=== PATIENT | male | born 1945 | race Native Hawaiian/Other Pacific Islander ===

== ENCOUNTER 2016-08-09 14:22 | Outpatient (CLI) | payer OTHER ==
[2016-08-09 14:42] LABS: PLATELET COUNT 177 K/uL (142-355)
[2016-08-09 15:03] LABS: POTASSIUM 4.4 mmol/L (3.6-5.2); SODIUM 139 mmol/L (136-145)
== END 2016-08-09 23:48 | disposition home or self-care (01) ==
LOC: LABW 14:22
PROVIDERS: Internal Medicine Cardiovascular Disease
DX: E78.4 Other hyperlipidemia (principal); Z79.899 Other long term (current) drug therapy; Z51.81 Encounter for therapeutic drug level monitoring
CPT/HCPCS: 36415; 80048; 80061; 80076; 85027

== ENCOUNTER 2018-09-05 06:05 | Outpatient (CLI) | payer OTHER ==
[2018-09-05 06:34] LABS: PLATELET COUNT 192 K/uL (142-355)
[2018-09-05 06:40] LABS: POTASSIUM 4.3 mmol/L (3.6-5.2)
== END 2018-09-05 20:18 | disposition home or self-care (01) ==
LOC: LABW 06:05
PROVIDERS: Internal Medicine Cardiovascular Disease
DX: Z79.899 Other long term (current) drug therapy (principal); E78.5 Hyperlipidemia, unspecified
CPT/HCPCS: 36415; 80053; 80061; 85027

== ENCOUNTER 2021-04-05 08:09 | Outpatient (CLI) | payer OTHER | END 2021-04-05 20:06 | disposition home or self-care (01) | LOC: CT 08:09 | PROVIDERS: ATTEND Internal Medicine Cardiovascular Disease | DX: R93.89 Abnormal findings on diagnostic imaging of other specified body structures (principal) | CPT/HCPCS: 36415; 82565; 84520; Q9963 ==

== ENCOUNTER 2023-03-08 07:28 | Outpatient (CLI) | payer OTHER ==
[2023-03-08 07:55] LABS: PLATELET COUNT 136 K/uL (142-355)
[2023-03-08 08:15] LABS: POTASSIUM 3.9 mmol/L (3.6-5.2)
== END 2023-03-08 19:53 | disposition home or self-care (01) ==
LOC: LABW 07:28
PROVIDERS: ATTEND Internal Medicine Cardiovascular Disease
DX: Z79.899 Other long term (current) drug therapy (principal); N39.0 Urinary tract infection, site not specified; N40.0 Benign prostatic hyperplasia without lower urinary tract symptoms
CPT/HCPCS: 80053; 80061; 81002; 84153; 84443; 85027; 87088